=== PATIENT | female | born 1975 | race Two or more races ===

== ENCOUNTER 2021-10-15 22:34 | Emergency (ER) | payer BC ==
[~2021-10-15] VITALS: Ht 157.5 cm; Wt 68.0 kg
[2021-10-16] MEDS ORDERED: KETOROLAC TROMETH 30 MG/ML 1ML VIAL IM ONE (01:15)
[2021-10-16 03:29] VITALS: BP 122/72
== END 2021-10-16 03:30 | disposition home or self-care (01) ==
LOC: ER 22:34
DX: S01.81XA Laceration without foreign body of other part of head, initial encounter (principal); W10.9XXA Fall (on) (from) unspecified stairs and steps, initial encounter; Y93.89 Activity, other specified; Y92.89 Other specified places as the place of occurrence of the external cause; Y99.8 Other external cause status
CPT/HCPCS: 12002; 70450; 70486; 72125; 81025; 96372; 99284; J1885; J2001